=== PATIENT | female | born 1960 | race Two or more races ===

== ENCOUNTER 2020-05-09 11:59 | Outpatient (CLI) | payer OTHER | END 2020-05-09 12:14 | disposition home or self-care (01) | LOC: SONOGRAMA 11:59 | PROVIDERS: ATTEND Pathology Anatomic Pathology & Clinical Pathology | DX: E04.2 Nontoxic multinodular goiter (principal) ==

== ENCOUNTER 2021-06-16 10:09 | Outpatient (CLI) | payer OTHER | END 2021-06-16 10:13 | disposition home or self-care (01) | LOC: SONOGRAMA 10:09 | PROVIDERS: ATTEND Pathology Anatomic Pathology & Clinical Pathology | DX: E04.2 Nontoxic multinodular goiter (principal); E03.8 Other specified hypothyroidism ==

== ENCOUNTER 2023-11-04 13:16 | Outpatient (CLI) | payer OTHER | END 2023-11-04 13:23 | disposition home or self-care (01) | LOC: SONOGRAMA 13:16 | PROVIDERS: ATTEND Pathology Anatomic Pathology & Clinical Pathology | DX: D34 Benign neoplasm of thyroid gland (principal); E07.89 Other specified disorders of thyroid; E04.2 Nontoxic multinodular goiter ==

== ENCOUNTER 2024-01-06 13:36 | Emergency (ER) | payer OTHER ==
[~2024-01-06] VITALS: Ht 160 cm; Wt 59.0 kg
[2024-01-06] MEDS ORDERED: PLAQUENIL (14:36)
[2024-01-06] MEDS ORDERED: PEPCID AC20 MG (14:36)
[2024-01-06] MEDS ORDERED: LEVOTHYROXINE25 MCG PO (14:36)
[2024-01-06] MEDS ORDERED: PROTONIX20 MG PO (14:36)
[2024-01-06] MEDS ORDERED: MILLIPRED5 MG (14:36)
[2024-01-06] MEDS ORDERED: AVAPRO150 MG PO (14:36)
[2024-01-06 15:48] LABS: HEMATOCRIT 44.8 % (36.0-45.00); MEAN CELL VOLUME 89.6 fL (80.00-100.00); MEAN CORPUSCULAR HGB CONC 33.5 g/dl (32.0-36.0); PLATELET COUNT 258 K/uL (150-450); RED CELL DISTRIBUTION WIDTH 14.7 % (11.5-14.5)
[2024-01-06 16:07] LABS: URINE APPEARANCE Clear; URINE BILIRRUBIN Negative (NEGATIVE); URINE BLOOD Negative; URINE COLOR Yellow; URINE GLUCOSE Negative (NEGATIVE); URINE KETONE Trace (NEGATIVE); URINE LEUKOCYTE Negative; URINE NITRATE Negative; URINE PROTEIN Trace (NEGATIVE); URINE UROBILINOGEN 0.2 E.U./dl
[2024-01-06 16:08] LABS: CALCIUM 9.7 mg/dL (8.5-10.1); CREATININE SERUM 0.69 mg/dL (0.55-1.02); GFR 85.65; POTASSIUM 4.57 mEq/L (3.5-5.1)
[2024-01-06 16:11] LABS: URINE BACTERIA 25.1 uL (0.0-1933); URINE EPITHELIAL CELLS 3.3 uL (0.0-38.8); URINE RBC 4.5 uL (0.0-20.8)
[2024-01-06 16:24] LABS: URINE CAST 0.76 uL (0.0-1.40)
== END 2024-01-06 16:26 | disposition home or self-care (01) ==
LOC: ER 13:38
PROVIDERS: Emergency Medicine
DX: L98.499 Non-pressure chronic ulcer of skin of other sites with unspecified severity (principal); T14.8XXA Other injury of unspecified body region, initial encounter; I10 Essential (primary) hypertension; E03.8 Other specified hypothyroidism; Z88.2 Allergy status to sulfonamides